=== PATIENT | female | born 1985 | race African-American/Black ===

== ENCOUNTER 2017-09-23 15:16 | Emergency (ER) | payer MEDICAID ==
[~2017-09-23] VITALS: Ht 157.5 cm; Wt 63.0 kg
[2017-09-23 15:25] VITALS: BP 131/74; PULSE 106; RESP 16; TEMP 98.4; O2SAT 100
[2017-09-23] MEDS ORDERED: TRINTAB7 PO (15:42)
[2017-09-23 15:54] LABS: BLOOD, URINE NEG (NEG); GLUCOSE,URINE NEG (NEG); KETONE, URINE NEG (NEG); NITRITE,URINE NEG (NEG); PH, URINE 7.5 (5.0-8.5)
--- NOTE | 2017-09-23 15:58 | PD ---
HPI Chief Complaint: Abdominal Pain Time Seen by Provider: 15:50 Travel History International Travel<30 days: No Contact w/Intl Traveler<30days: No Traveled to known affect area: No History of Present Illness HPI 32-year-old female patient with history of no significant past medical issues, presents to the ER today because of right pelvic pains that started today suddenly, currently a 3 out of 10. She states that she is currently in her period now. She denies any nausea, vomiting, fevers, urinary symptoms, or any other issues. Modifying Factors: None Associated Signs & Symptoms: Right pelvic pain Risk Factors: None PFSH Past Medical History Medical History: Denies Significant Hx Tetanus Vaccination: < 5 Years Influenza Vaccination: Yes ?: Unknown LMP: "last month" Past Surgical History Surgical History: No Previous Surgery Social History Alcohol Use: No Tobacco Use: No Substance Use: No Allergies-Medications (Allergen,Severity, Reaction): Coded Allergies: No Known Allergies (Unverified , 09/23/17) Reported Meds & Prescriptions Reported Meds & Active Scripts Active Reported Trinessa (Norgestimate-Ethinyl Estradiol) 0.18/0.215/0.25 mg-35 Mcg Tab 1 Tab PO DAILY Review of Systems Except as stated in HPI: all other systems reviewed are Neg Physical Exam Narrative GENERAL: Well-developed young -[place]iss female patient currently in mild distress. Awake and oriented 3. SKIN: Focused skin assessment warm/dry. HEAD: Atraumatic. Normocephalic. EYES: Pupils equal and round. No scleral icterus. No injection or drainage. ENT: No nasal bleeding or discharge. Mucous membranes pink and moist. NECK: Trachea midline. No JVD. CARDIOVASCULAR: Regular rate and rhythm. No murmur appreciated. RESPIRATORY: No accessory muscle use. Clear to auscultation. Breath sounds equal bilaterally. GASTROINTESTINAL: Abdomen soft, non-tender, nondistended. Hepatic and splenic margins not palpable. MUSCULOSKELETAL: No obvious deformities. No clubbing. No cyanosis. No edema. NEUROLOGICAL: Awake and alert. No obvious cranial nerve deficits. Motor grossly within normal limits. Normal speech. PSYCHIATRIC: Appropriate mood and affect; insight and judgment normal. Data Data Last Documented VS Vital Signs Date Time Temp Pulse Resp B/P (MAP) Pulse Ox O2 Delivery O2 Flow Rate FiO2 09/23/17 18:09 98.6 94 16 143/76 (98) 100 Room Air Orders Orders Urinalysis - C+S If Indicated (09/23/17 15:28) Ed Urine Pregnancytest Poc (09/23/17 15:28) Beta Hcg (Quant/Titer) (09/23/17 15:51) Complete Blood Count With Diff (09/23/17 15:51) Comprehensive Metabolic Panel (09/23/17 15:51) Iv Access Insert/Monitor (09/23/17 15:51) Ecg Monitoring (09/23/17 15:51) Oximetry (09/23/17 15:51) Sodium Chloride 0.9% Flush (Ns Flush) (09/23/17 16:00) Sodium Chlor 0.9% 1000 Ml Inj (Ns 1000 M (09/23/17 16:00) Us Pelvis (Ques Preg/Ectopic) (09/23/17 17:01) Ed Discharge Order (09/23/17 18:22) Labs Laboratory Tests Test 09/23/17 15:30 09/23/17 15:56 Urine Collection Type VOIDED Urine Color YELLOW Urine Turbidity CLEAR Urine pH 7.5 Urine Specific [place] 1.018 Urine Protein NEG mg/dL Urine Glucose (UA) NEG mg/dL Urine Ketones NEG mg/dL Urine Occult Blood NEG Urine Nitrite NEG Urine Bilirubin NEG Urine Leukocyte Esterase NEG Urine WBC 0-2 /hpf Urine Squamous Epithelial Cells >8 /hpf Urine Bacteria FEW /hpf Urine Mucus RARE /lpf Microscopic Urinalysis Comment CULT NOT INDICATED White Blood Count 10.5 TH/MM3 Red Blood Count 4.04 MIL/MM3 Hemoglobin 11.6 GM/DL Hematocrit 35.5 % Mean Corpuscular Volume 87.9 FL Mean Corpuscular Hemoglobin 28.7 PG Mean Corpuscular Hemoglobin Concent 32.7 % Red Cell Distribution Width 11.5 % Platelet Count 260 TH/MM3 Mean Platelet Volume 9.5 FL Neutrophils (%) (Auto) 68.0 % Lymphocytes (%) (Auto) 17.8 % Monocytes (%) (Auto) 11.3 % Eosinophils (%) (Auto) 2.2 % Basophils (%) (Auto) 0.7 % Neutrophils # (Auto) 7.1 TH/MM3 Lymphocytes # (Auto) 1.9 TH/MM3 Monocytes # (Auto) 1.2 TH/MM3 Eosinophils # (Auto) 0.2 TH/MM3 Basophils # (Auto) 0.1 TH/MM3 CBC Comment DIFF FINAL Differential Comment Blood Urea Nitrogen 7 MG/DL Creatinine 0.49 MG/DL Random Glucose 99 MG/DL Total Protein 7.8 GM/DL Albumin 3.4 GM/DL Calcium Level 9.0 MG/DL Alkaline Phosphatase 71 U/L Aspartate Amino Transf (AST/SGOT) 15 U/L Alanine Aminotransferase (ALT/SGPT) 16 U/L Total Bilirubin 0.2 MG/DL Sodium Level 135 MEQ/L Potassium Level 3.4 MEQ/L Chloride Level 103 MEQ/L Carbon Dioxide Level 23.1 MEQ/L Anion Gap 9 MEQ/L Estimat Glomerular Filtration Rate 178 ML/MIN Human Chorionic Gonadotropin, Quant [id number] MIU/ML MDM Medical Decision Making Medical Screen Exam Complete: Yes Emergency Medical Condition: Yes Medical Record Reviewed: Yes Interpretation(s) Laboratory Tests Test 09/23/17 15:30 09/23/17 15:56 Urine Bacteria FEW /hpf (NONE) Red Cell Distribution Width 11.5 % (11.6-17.2) Monocytes (%) (Auto) 11.3 % (0.0-8.0) Monocytes # (Auto) 1.2 TH/MM3 (0-0.9) Creatinine 0.49 MG/DL (0.50-1.00) Sodium Level 135 MEQ/L (136-145) Potassium Level 3.4 MEQ/L (3.5-5.1) Human Chorionic Gonadotropin, Quant [id number] MIU/ML (0-5) Last 24 hours Impressions Pelvis Ultrasound 09/23/17 1701 Signed Impressions: Service Date/Time: Saturday, September 23, 2017 17:51 - CONCLUSION: 1. Single viable intrauterine of 10 weeks 2 days with heart rate 172 beats per minute. Marshal Christopher MD Differential Diagnosis Right pelvic pains: Renal colic versus ovarian cyst versus ectopic Narrative Course HCG positive, ultrasound showing a 10 week with good heart tones. Patient states that she thinks she is Rh+, never received RhoGAM with previous . At this point, my plan would be to release her with follow- up to [facility]. Pelvic precautions. Return for any worsening in bleeding, pain, and as needed. The plan was discussed with her and she states understanding. Diagnosis Primary Impression: Threatened in first trimester Additional Instructions: He need to follow-up with [facility] within a few days for further care of , threatened miscarriage. Return for any worsening in bleeding, pain, and as needed. Disposition: 01 DISCHARGE HOME Condition: Stable Lili Castro MD Sep 23, 2017 15:58
[2017-09-23] MEDS ORDERED: SODIUM CHLORIDE 0.9% FLUSH 10 ML FLUSH IV FLUSH PRN (16:00)
[2017-09-23] MEDS ORDERED: SODIUM CHLOR 0.9% 1000 ML INJ 1,000 ML IV ONE (16:00)
[2017-09-23 16:06] LABS: BACTERIA, URINE FEW /hpf; METHOD OF COLLECTION VOIDED; MUCUS URINE RARE /lpf (OCC); SQUAMOUS EPITHELIAL CELL URINE >8 /hpf (0-5); URINE COLOR YELLOW (YELLW/STRAW); WBC, URINE 0-2 /hpf (0-5)
[2017-09-23 16:07] LABS: COMMENT (UR) CULT NOT INDICATED; CULTURE IF INDICATED CULT NOT INDICATED
[2017-09-23 16:09] VITALS: BP 135/71; PULSE 98; RESP 18; O2SAT 100
[2017-09-23 16:21] LABS: AUTOMATED NEUTROPHIL # 7.1 TH/MM3 (1.8-7.7); BASOPHIL # 0.1 TH/MM3 (0-0.2); BASOPHIL % 0.7 % (0.0-2.0); EOSINOPHIL # 0.2 TH/MM3 (0-0.4); EOSINOPHIL % 2.2 % (0.0-4.0); HEMATOCRIT 35.5 % (35.0-46.0); HEMO FLAGS DIFF FINAL; LYMPH % 17.8 % (9.0-44.0); LYMPHOCYTE # 1.9 TH/MM3 (1.0-4.8); MEAN CELL VOLUME 87.9 FL (80.0-100.0); MEAN CORPUSCULAR HEMOGLOBIN 28.7 PG (27.0-34.0); MEAN CORPUSCULAR HGB CONC 32.7 % (32.0-36.0); MONO % 11.3 % (0.0-8.0); PLATELET COUNT 260 TH/MM3 (150-450); RED BLOOD COUNT 4.04 MIL/MM3 (4.00-5.30); RED CELL DISTRIBUTION WIDTH 11.5 % (11.6-17.2); WHITE BLOOD COUNT 10.5 TH/MM3 (4.0-11.0)
[2017-09-23 16:31] LABS: CHLORIDE 103 MEQ/L (98-107); POTASSIUM 3.4 MEQ/L (3.5-5.1); SODIUM (NA) 135 MEQ/L (136-145)
[2017-09-23 16:35] LABS: ANION GAP 9 MEQ/L (5-15); BICARBONATE 23.1 MEQ/L (21.0-32.0); BLOOD UREA NITROGEN 7 MG/DL (7-18)
[2017-09-23 16:38] LABS: ALT (GPT) 16 U/L (10-53); AST (GOT) 15 U/L (15-37); GLOMERULAR FILTRATION RATE 178 ML/MIN (>89)
[2017-09-23 16:39] LABS: TOTAL BILIRUBIN ADULT 0.2 MG/DL (0.2-1.0)
[2017-09-23 16:41] LABS: ALKALINE PHOSPHATASE 71 U/L (45-117)
[2017-09-23 16:55] LABS: BETA HCG QUANT 164015 MIU/ML (0-5)
[2017-09-23 17:09] VITALS: BP 138/71; PULSE 98; RESP 16; O2SAT 100
[2017-09-23 18:09] VITALS: BP 143/76; PULSE 94; RESP 16; TEMP 98.6; O2SAT 100
--- NOTE | 2017-09-23 18:16 | RADRPT ---
EXAM DATE/TIME: 09/23/2017 17:51 [facility] COMPARISON: No previous studies available for comparison. INDICATIONS : Pelvic cramping. LAB(S): Beta-hC MEDICAL HISTORY : . SURGICAL HISTORY : None. ENCOUNTER: Initial ACUITY: 1 day PAIN SCORE: 3/10 LOCATION: Bilateral pelvis MEASUREMENTS: UTERUS: 14.2 x 7.4 x 5.8 cm ENDOMETRIAL STRIPE: 9 mm RIGHT OVARY: 3.1 x 1.5 x 1.9 cm LEFT OVARY: 4.7 x 3.4 x 2.8 cm FREE FLUID: No CROWN RUMP LENGTH: 3.3 cm = 10 WKS 2 DAYS FHR: 172 BPM FINDINGS: There is a single viable intrauterine with gestational age 10 weeks 2 days by crown rump le ngth. Positive yolk sac. heart rate 172 beats per minute. Right ovary unremarkable. Left ovarian cyst measuring up to 3 cm. No free fluid. CONCLUSION: 1. Single viable intrauterine of 10 weeks 2 days with heart rate 172 beats per minute . Marshal Christopher MD on September 23, 2017 at 18:10 Board Certified Radiologist. This report was verified electronically.
[2017-09-23 20:42] VITALS: BP 128/76
== END 2017-09-23 20:45 | disposition home or self-care (01) ==
LOC: PHED 15:16
DX: O20.0 Threatened abortion (principal); Z3A.10 10 weeks gestation of pregnancy
CPT/HCPCS: 76700; 80053; 81001; 84702; 84703; 85025; 86901; 96360; 99285; J7030